=== PATIENT | female | born 1985 | race Two or more races ===

== ENCOUNTER → 2018-11-18 | Outpatient (REF) | payer OTHER ==
[2018-11-18 17:08] LABS: HEMATOCRIT 37.4 % (36.0-47.0); HEMOGLOBIN 12.1 g/dl (12.0-15.5); MEAN CORPUSCULAR HEMOGLOBIN 26.9 pg (27.0-33.0); MEAN CORPUSCULAR HGB CONC 32.4 g/dl (32.0-36.5); MEAN CORPUSCULAR VOLUME 83.1 fl (80.0-96.0); PLATELET COUNT, AUTOMATED 230 10^3/uL (150-450); WHITE BLOOD COUNT 8.8 10^3/uL (4.0-10.0)
[2018-11-18 17:38] LABS: HCG, SERUM QUANTITATIVE 83857 MIU/ML
[2018-11-18 17:41] LABS: RUBELLA IgG QUALITATIVE IMMUNE (IMMUNE)
[2018-11-18 18:10] LABS: HIV 1&2 SCREEN CENTAUR NEGATIVE (NEGATIVE)
[2018-11-20 10:31] LABS: HEPATITIS C VIRUS ABY INDEX 0.1 INDEX (<0.8)
== END ==
LOC: M LAB REF 16:16
PROVIDERS: ATTEND Obstetrics & Gynecology
DX: Z32.01 Encounter for pregnancy test, result positive (principal)

== ENCOUNTER → 2019-01-12 | Outpatient (REF) | payer OTHER ==
[2019-01-12 16:13] LABS: BASO % 0.3 % (0.0-1.0); EOS # 0.1 10^3/uL (0.0-0.50); EOS % 1.6 % (0.0-3.0); HEMOGLOBIN 11.5 g/dl (12.0-15.5); LYMPH # 1.2 10^3/uL (1.5-4.5); LYMPH % 18.2 % (24.0-44.0); MEAN CORPUSCULAR HEMOGLOBIN 27.7 pg (27.0-33.0); MEAN CORPUSCULAR HGB CONC 32.9 g/dl (32.0-36.5); MEAN CORPUSCULAR VOLUME 84.3 fl (80.0-96.0); MONO # 0.5 10^3/uL (0.0-0.8); NEUTROPHILS # 4.9 10^3/uL (1.8-7.7); NEUTROPHILS % 72.5 % (36.0-66.0); PLATELET COUNT, AUTOMATED 182 10^3/uL (150-450); RED BLOOD COUNT 4.15 10^6/uL (4.00-5.40); WHITE BLOOD COUNT 6.8 10^3/uL (4.0-10.0)
[2019-01-12 16:26] LABS: CHOLESTEROL RISK RATIO 2.925 (<5); MAGNESIUM LEVEL 1.8 MG/DL (1.8-2.4); PERCENT SATURATION 10.7 % (13.2-45.0); THYROID STIMULATING HORMONE 0.632 uIU/ML (0.358-3.740)
== END ==
LOC: M LAB REF 15:44
PROVIDERS: ATTEND Internal Medicine
DX: Z00.00 Encounter for general adult medical examination without abnormal findings (principal); Z13.220 Encounter for screening for lipoid disorders; D64.9 Anemia, unspecified; E55.9 Vitamin D deficiency, unspecified

== ENCOUNTER 2019-03-09 10:29 | Outpatient (CLI) | payer OTHER ==
[~2019-03-09] VITALS: Ht 172.7 cm; Wt 80.0 kg
[2019-03-09] MEDS ORDERED: IRON SUCROSE 100 MG in NS 100 ML IV ONE (11:00)
[2019-03-09 11:14] VITALS: BP 105/67
[2019-03-09] MEDS ORDERED: IRON SUCROSE 25 MG in NS 50 ML IV ONE (12:00)
[2019-03-09 12:10] VITALS: BP 102/62
[2019-03-09] MEDS ORDERED: IRON SUCROSE 75 MG in NS 100 ML IV ONE (13:00)
[2019-03-09 13:35] VITALS: BP 112/55
== END 2019-03-09 13:40 | disposition home or self-care (01) ==
LOC: M INFU 10:29
PROVIDERS: ATTEND Obstetrics & Gynecology
DX: D50.9 Iron deficiency anemia, unspecified (principal)
CPT/HCPCS: 96365; J1756

== ENCOUNTER → 2019-04-16 | Outpatient (CLI) | payer OTHER ==
[2019-04-16 14:57] LABS: HEMATOCRIT 30.5 % (36.0-47.0); HEMOGLOBIN 9.5 g/dl (12.0-15.5); MEAN CORPUSCULAR HEMOGLOBIN 25.7 pg (27.0-33.0); MEAN CORPUSCULAR HGB CONC 31.1 g/dl (32.0-36.5); MEAN CORPUSCULAR VOLUME 82.4 fl (80.0-96.0); PLATELET COUNT, AUTOMATED 200 10^3/uL (150-450); WHITE BLOOD COUNT 8.6 10^3/uL (4.0-10.0)
== END ==
LOC: M LAB 13:09
PROVIDERS: ATTEND Obstetrics & Gynecology
DX: Z36.89 Encounter for other specified antenatal screening (principal)

== ENCOUNTER → 2019-04-22 | Outpatient (CLI) | payer OTHER | LOC: M LAB 08:08 | PROVIDERS: ATTEND Obstetrics & Gynecology | DX: R73.09 Other abnormal glucose (principal) ==

== ENCOUNTER → 2019-06-15 | Outpatient (REF) | payer OTHER ==
[~2019-06-15] MED LIST: ZOFR4TAB16 PO
== END ==
LOC: M LAB REF 12:47
PROVIDERS: ATTEND Obstetrics & Gynecology
DX: Z34.83 Encounter for supervision of other normal pregnancy, third trimester (principal)

== ENCOUNTER 2019-07-03 16:37 | Inpatient (IN) | payer OTHER ==
[~2019-07-03] VITALS: Ht 172.7 cm; Wt 87.3 kg
[2019-07-03 17:00] VITALS: BP 117/80
[2019-07-03] MEDS ORDERED: LR 1,000 ML IV SCH ×2 (17:30→18:44)
[2019-07-03] MEDS ORDERED: LR 800 ML IV ONE (17:30)
[2019-07-03 17:42] LABS: HEMATOCRIT 34.3 % (36.0-47.0); HEMOGLOBIN 10.8 g/dl (12.0-15.5); MEAN CORPUSCULAR HEMOGLOBIN 24.2 pg (27.0-33.0); MEAN CORPUSCULAR HGB CONC 31.5 g/dl (32.0-36.5); MEAN CORPUSCULAR VOLUME 76.7 fl (80.0-96.0); PLATELET COUNT, AUTOMATED 193 10^3/uL (150-450); RED BLOOD COUNT 4.47 10^6/uL (4.00-5.40); WHITE BLOOD COUNT 11.6 10^3/uL (4.0-10.0)
[2019-07-03] MEDS ORDERED: PROMETHAZINE INJ 25 MG/ML VIAL (J2550) IM ONE (18:00)
[2019-07-03] MEDS ORDERED: BUTORPHANOL 2 MG/ML INJ (J0595) IV ONE (18:00)
[2019-07-03] MEDS ORDERED: BUTORPHANOL 2 MG/ML INJ (J0595) As Ordered ONE (18:01)
[2019-07-03] MEDS ORDERED: PROMETHAZINE INJ 25 MG/ML VIAL (J2550) As Ordered ONE (18:01)
[2019-07-03 18:11] VITALS: BP 117/71
[2019-07-03] MEDS ORDERED: PROMETHAZINE INJ 25 MG/ML VIAL (J2550) IV ONE (18:30)
[2019-07-03] MEDS ORDERED: FENTANYL 2MCG/ML ROPIVACAINE 0.2% IN 0.9% NACL 100ML IVBAG As Ordered ONE (18:48)
[2019-07-03 18:51] VITALS: BP 112/75
[2019-07-03 18:55] VITALS: BP 118/73
[2019-07-03 18:57] VITALS: BP 103/70
[2019-07-03] MEDS ORDERED: LACTATED RINGER'S 1000 ML IV PRN (19:15)
[2019-07-03] MEDS ORDERED: diphenhydrAMINE INJ 50MG/ML VIAL (J1200) IV PRN (19:15)
[2019-07-03] MEDS ORDERED: EPIDURAL/PCA KEYS XX PRN (19:15)
[2019-07-03] MEDS ORDERED: ePHEDrine SULFATE 25 MG/5 ML(5MG/ML) SYRINGE IV PRN (19:15)
[2019-07-03] MEDS ORDERED: EPIDURAL COMMENT XX SCH (19:15)
[2019-07-03] MEDS ORDERED: ONDANSETRON 4MG/2ML VIAL (J2405) IV PRN (19:15)
[2019-07-03] MEDS ORDERED: REFRIGERATOR IV KEYS XX PRN (19:15)
[2019-07-03] MEDS ORDERED: FENTANYL/ROPIVACAINE/NACL BAG 100 ML EPIDURAL SCH (19:15)
[2019-07-03] MEDS ORDERED: NALOXONE INJ 0.4 MG/1 ML VIAL (J2310) IV PRN (19:15)
[2019-07-03] MEDS ORDERED: OXYTOCIN DRIP 30 UNITS in APPROPRIATE DILUENT 1 EA IV SCH ×2 (20:15→21:26)
[2019-07-03] MEDS ORDERED: IBUPROFEN 600 MG TAB PO PRN (21:30)
[2019-07-03] MEDS ORDERED: RHOGAM 300 MCG (1500 IU) INJ (J2790) IM SCH (21:30)
[2019-07-03] MEDS ORDERED: DIBUCAINE 1% OINTMENT 30GM TOP PRN (21:30)
[2019-07-03] MEDS ORDERED: MEASLES,MUMPS,RUBELLA VACCINE INJ (MMR-II) (90707) SC SCH (21:30)
[2019-07-03] MEDS ORDERED: ANUSOL HC CREAM 30GM TOP PRN (21:30)
[2019-07-03] MEDS ORDERED: METHYLERGONOVINE MALEATE 0.2 MG TAB PO PRN (21:30)
[2019-07-03] MEDS ORDERED: ACETAMINOPHEN TAB 650MG DOSE (2X325MG) PO PRN (21:30)
[2019-07-03 21:58] LABS: CORD GAS HCO3 V 24.8 MEQ/L; CORD GAS O2 SAT V 82.8 %; CORD GAS PCO2 V 45.6 mmHg; CORD GAS PH V 7.354 UNITS; CORD GAS PO2 V 40.7 mmHg; CORD GAS SBC V 23.2 MEQ/L; CORD GAS TCO2 V 26.2 MEQ/L
[2019-07-03 22:01] LABS: CORD GAS ABE A -0.4; CORD GAS HCO3 A 27.1 MEQ/L; CORD GAS PCO2 A 55.5 mmHg; CORD GAS PH A 7.307 UNITS; CORD GAS PO2 A 22.6 mmHg; CORD GAS SBC A 22.9 MEQ/L; CORD GAS TCO2 A 28.8 MEQ/L
[2019-07-04 00:06] VITALS: BP 119/66
[2019-07-04] MEDS ORDERED: SLF 3 ML SYR IV PRN (00:45)
[2019-07-04 06:00] VITALS: BP 102/64
[2019-07-04] MEDS: SLF 3 ML SYR IV SCH ×3 (06:00→22:00)
[2019-07-04] MEDS: PRENATAL VITAMINS CHEWABLE TABLET PO SCH (07:52)
[2019-07-04] MEDS: IBUPROFEN 800 MG TAB PO PRN ×2 (07:53→17:30)
--- NOTE | 2019-07-04 10:04 | HPE ---
DATE OF ADMISSION: 07/03/2019 Eduarda is a 34-year-old female 3, para 1-1-0-2 with an estimated date of confinement (EDC) of 07/05/2019, estimated gestational age (EGA) 39-5/7 weeks gestation who presented to labor and delivery with complaints of contractions every 5-7 minutes. Upon evaluation on labor and delivery she was found to be in active labor. At this point a decision was made for admission. Her record was reviewed, which was essentially unremarkable. The patient does suffer from iron-deficiency anemia for which she has had three iron transfusion during her , otherwise an uncomplicated . LABS: Blood type is B positive. Rubella immune. Hepatitis negative. HIV negative. GC and chlamydia negative. 1-hour sugar testing was within normal limits. Her Group B Streptococcus (GBS) is negative. PAST MEDICAL HISTORY: Significant for iron-deficiency anemia. PAST SURGICAL HISTORY: Tonsillectomy. SOCIAL HISTORY: She is . She is a physician. Denies any alcohol, drug or cigarette smoking. REVIEW OF SYSTEMS: Unremarkable. MEDICATIONS: - vitamins. ALLERGIES: No known drug allergies. FAMILY HISTORY: Significant for cardiomyopathy and thyroid disease. PHYSICAL EXAMINATION: Normal-appearing female in no acute distress. Abdomen: Soft, nontender, nondistended. Extremities: No clubbing, cyanosis or edema. Vaginal exam: 4-5 cm dilated with bulging membrane, cervix 100% effaced, fetus at -3 station. Tracing reviewed, category 1 tracing with contractions every 3-4 minutes. ASSESSMENT: Intrauterine at 39-5/7 weeks gestation in active labor. PLAN: Admit to labor and delivery. Routine labs sent. Pain management discussed. Patient opts for an epidural. Will continue to monitor. Anticipate delivery.
[2019-07-04] MEDS: ACETAMINOPHEN 500 MG TAB PO PRN (13:47)
--- NOTE | 2019-07-04 13:51 | DN ---
DATE OF DELIVERY: 07/03/2019 Eduarda is a 34-year-old female 3, para 1-1-0-2 who presented at 39-5/7 weeks gestation in labor. She progressed to fully dilated after artificial rupture of membranes and Pitocin augmentation and delivered a live male in right occiput anterior position. scores 9 an d9. weight 7 pounds 1 ounce. Placenta delivered spontaneously intact. Three-vessel cord. Perineum, vagina and cervix inspected. A first-degree midline perineal laceration was noted which was repaired using #2-0 chromic. Estimated blood loss 300 mL. Both mother and baby in stable condition.
[2019-07-04] MEDS: DOCUSATE SODIUM 100 MG CAP PO PRN (17:30)
[2019-07-04 18:00] VITALS: BP 108/67
[2019-07-05] MEDS: SLF 3 ML SYR IV SCH (06:00)
[2019-07-05] MEDS: DOCUSATE SODIUM 100 MG CAP PO PRN (06:11)
[2019-07-05] MEDS: ACETAMINOPHEN 500 MG TAB PO PRN (06:12)
[2019-07-05 06:28] VITALS: BP 106/60
[2019-07-05] MEDS: PRENATAL VITAMINS CHEWABLE TABLET PO SCH (07:32)
== END 2019-07-05 10:45 | disposition home or self-care (01) | DRG 560 ==
LOC: M LDO 16:37 → M LDI 17:21 → M OBS 23:54
PROVIDERS: ADMIT Obstetrics & Gynecology; ATTEND Obstetrics & Gynecology
PROC: 10E0XZZ Delivery of Products of Conception, External Approach (ICD-10-PCS; principal; 2019-07-03)
PROC: 10907ZC Drainage of Amniotic Fluid, Therapeutic from Products of Conception, Via Natural or Artificial Opening (ICD-10-PCS; 2019-07-03)
PROC: 0HQ9XZZ Repair Perineum Skin, External Approach (ICD-10-PCS; 2019-07-03)
DX: O99.02 Anemia complicating childbirth (principal); D50.9 Iron deficiency anemia, unspecified; Z37.0 Single live birth; Z3A.39 39 weeks gestation of pregnancy; O70.0 First degree perineal laceration during delivery

== ENCOUNTER → 2020-01-03 | Outpatient (REF) | payer OTHER | LOC: M LAB REF 15:54 | PROVIDERS: ATTEND Radiology Diagnostic Radiology | DX: N63.10 Unspecified lump in the right breast, unspecified quadrant (principal) ==

== ENCOUNTER 2020-04-12 02:29 | Emergency (ER) | payer OTHER ==
[~2020-04-12] VITALS: Ht 172.7 cm; Wt 81.8 kg
[2020-04-12] MEDS ORDERED: NS 1,000 ML IV ONE ×2 (03:00→06:30)
[2020-04-12] MEDS ORDERED: diphenhydrAMINE 50MG/ML VIAL (J1200) IV ONE (03:00)
[2020-04-12] MEDS ORDERED: METOCLOPRAMIDE INJ 10MG/2ML VIAL (J2765 PER 1) IV ONE (03:00)
[2020-04-12 03:08] LABS: BASO # 0.1 10^3/uL (0.0-0.2); BASO % 0.5 % (0.0-1.0); EOS # 0.1 10^3/uL (0.0-0.5); EOS % 0.8 % (0.0-3.0); HEMATOCRIT 39.9 % (36.0-47.0); HEMOGLOBIN 12.7 g/dl (12.0-15.5); LYMPH # 1.9 10^3/uL (1.5-5.0); LYMPH % 20.5 % (24.0-44.0); MEAN CORPUSCULAR HEMOGLOBIN 26.4 pg (27.0-33.0); MEAN CORPUSCULAR HGB CONC 31.8 g/dl (32.0-36.5); MONO # 0.4 10^3/uL (0.0-0.8); MONO % 4.2 % (0.0-5.0); NEUTROPHILS # 6.9 10^3/uL (1.5-8.5); NEUTROPHILS % 73.6 % (36.0-66.0); PLATELET COUNT, AUTOMATED 219 10^3/uL (150-450); RED BLOOD COUNT 4.81 10^6/uL (4.00-5.40); WHITE BLOOD COUNT 9.4 10^3/uL (4.0-10.0)
[2020-04-12] MEDS ORDERED: ISOVUE-370 76% 100ML VIAL As Ordered ONE (03:10)
--- NOTE | 2020-04-12 04:01 | REPVR ---
PROCEDURE INFORMATION: Exam: CT Head Without Contrast Exam date and time: 04/12/2020 3:00 AM Age: 35 years old Clinical indication: Pain; Headache not specified; Additional info: New onset headache, neck pain TECHNIQUE: Imaging protocol: Computed tomography of the head without contrast. Radiation optimization: All CT scans at this facility use at least one of these dose optimization techniques: automated exposure control; mA and/or kV adjustment per patient size (includes targeted exams where dose is matched to clinical indication); or iterative reconstruction. COMPARISON: No relevant prior studies available. FINDINGS: Brain: Normal. No hemorrhage. Unremarkable white matter. No mass effect. Ventricles: Normal. No ventriculomegaly. Bones/joints: Unremarkable. No acute fracture. Sinuses: Visualized sinuses are unremarkable. No fluid levels. Mastoid air cells: Visualized mastoid air cells are well aerated. Soft tissues: Unremarkable. IMPRESSION: No acute intracranial abnormality. Electronically signed by: Edwin Engle On 04/12/2020 04:01:09 AM
--- NOTE | 2020-04-12 04:07 | REPVR ---
PROCEDURE INFORMATION: Exam: CT Angiography Neck With Contrast Exam date and time: 04/12/2020 3:00 AM Age: 35 years old Clinical indication: Pain; Headache; Additional info: New onset headache, neck pain TECHNIQUE: Imaging protocol: Computed tomography angiography of the neck with intravenous contrast. 3D rendering: MIP and/or 3D reconstructed images were created by the technologist. Radiation optimization: All CT scans at this facility use at least one of these dose optimization techniques: automated exposure control; mA and/or kV adjustment per patient size (includes targeted exams where dose is matched to clinical indication); or iterative reconstruction. Contrast material: ISO; Contrast volume: 75 ml; Contrast route: AC; COMPARISON: No relevant prior studies available. FINDINGS: Right common carotid artery: No stenosis. No dissection or occlusion. Right internal carotid artery: No stenosis of the extracranial segment. No dissection or occlusion. Right external carotid artery: No occlusion or stenosis of the origin. Right vertebral artery: No stenosis. No dissection or occlusion. Left common carotid artery: No stenosis. No dissection or occlusion. Left internal carotid artery: No stenosis of the extracranial segment. No dissection or occlusion. Left external carotid artery: No occlusion or stenosis of the origin. Left vertebral artery: No stenosis. No dissection or occlusion. Bones/joints: Mild degenerative changes at C4-C5. Stenosis of the right neural foramen at this level. Soft tissues: Normal. No significant soft tissue swelling. IMPRESSION: No acute findings. REFERENCES: NASCET CRITERIA. The degree of internal carotid artery stenosis is based on NASCET criteria. Normal is no stenosis. Mild is less than 50% stenosis. Moderate is 50-69% stenosis. Severe is 70% to 99% stenosis. Total occlusion is no detectable patent lumen. Electronically signed by: Edwin Engle On 04/12/2020 04:07:21 AM
[2020-04-12] MEDS ORDERED: ACETAMINOPHEN 500 MG TAB PO ONE (05:30)
[2020-04-12 05:33] LABS: APPEARANCE, CSF TURBID (CLEAR); COLOR, CSF RED (COLORLESS); CSF TUBE# CELL CNT TUBE 4
[2020-04-12] MEDS ORDERED: ACETAMINOPHEN 500 MG TAB As Ordered ONE (05:36)
[2020-04-12 05:39] LABS: CSF TUBE# GLU TUBE 3; CSF TUBE# TP TUBE 3; GLUCOSE CSF 61 MG/DL (40-75); TOTAL PROTEIN,CSF 237 MG/DL (15-45)
[2020-04-12 05:45] LABS: APPEARANCE, CSF TURBID (CLEAR); COLOR, CSF RED (COLORLESS); CSF TUBE# CELL CNT TUBE 1
[2020-04-12 06:46] VITALS: BP 124/70
== END 2020-04-12 06:54 | disposition short-term general hospital (02) ==
LOC: M ED 02:29 → EDBD 02:29 → M ED 06:54
DX: I60.9 Nontraumatic subarachnoid hemorrhage, unspecified (principal); J30.89 Other allergic rhinitis
CPT/HCPCS: 51702; 70450; 70498; 80047; 82945; 84157; 84702; 85025; 86140; 87070; 87205; 87483; 89051; 96374; 96375; 99291; J1200; J2765; Q9967

== ENCOUNTER → 2020-04-20 | Outpatient (REF) | payer OTHER ==
[2020-04-20 16:38] LABS: CK-MB VALUE MASS < 1.0 NG/ML (<3.6); CPK CREATINE PHOSPHOKINASE 63 U/L (26-192); MB/CK RELATIVE INDEX 1.59 (< OR =4); TROPONIN I < 0.02 NG/ML (< 0.10)
== END ==
LOC: M LAB REF 15:59
PROVIDERS: ATTEND Internal Medicine
DX: R00.0 Tachycardia, unspecified (principal)

== ENCOUNTER → 2020-11-16 | Outpatient (REF) | payer OTHER | LOC: M LAB REF 12:27 | PROVIDERS: ATTEND Internal Medicine | DX: G03.9 Meningitis, unspecified (principal) ==